=== PATIENT | male | born 1970 | race African-American/Black ===

== ENCOUNTER 2020-08-19 14:28 | Emergency (ER) | payer MEDICAID ==
[~2020-08-19] VITALS: Ht 182.9 cm; Wt 86.2 kg
[2020-08-19 14:31] VITALS: BP 161/105
--- NOTE | 2020-08-19 14:37 | NUR ---
PT AMB TO BED 12
--- NOTE | 2020-08-19 14:39 | NUR ---
PATIENT PRESENTS TO ED WITH BACK AND LEFT LEG PAIN X1M. PT STATES ANAM[facility] VAN JUST GOT OUT OF [facility] AND IS NOW HAVING PAIN.DENIES N/V/D; SKIN IS PINK/WARM/DRY; AAOX4 WITH EVEN AND STEADY GAIT; LUNGS CLEAR BL; HR EVEN AND REGULAR; PT DENIES ANY FEVER, CP, SOB, OR COUGH AT THIS TIME; PATIENT STATES PAIN OF 9/10 AT THIS TIME; VSS; PATIENT POSITIONED FOR COMFORT; HOB ELEVATED; BEDRAILS UP X2; BED DOWN. ER MD MADE AWARE OF PT STATUS. MED HX: DEPRESSION,PTSD & BIPOLAR
[2020-08-19] MEDS ORDERED: KETOROLAC 60 MG/2 ML VIAL IM ONE (14:40)
[2020-08-19 15:25] VITALS: BP 138/91
--- NOTE | 2020-08-19 15:26 | NUR ---
Patient discharged with v/s stable. Written and verbal after care instructions given and explained. Patient alert, oriented and verbalized understanding of instructions. Ambulatory with steady gait. All questions addressed prior to discharge. ID band removed. Patient advised to follow up with PMD. Rx of NAPROSYN AND ROBAXIN given. Patient educated on indication of medication including possible reaction and side effects. Opportunity to ask questions provided and answered.
== END 2020-08-19 15:26 | disposition home or self-care (01) ==
LOC: MED 14:28
DX: M54.42 Lumbago with sciatica, left side (principal); Z98.890 Other specified postprocedural states
CPT/HCPCS: 96372; 99283; J1885